=== PATIENT | female | born 1995 | race Caucasian/White ===

== ENCOUNTER 2024-12-20 17:41 | Emergency (ER) | payer BC, SELFPAY ==
[2024-12-20 17:52] VITALS: BP 139/87
[2024-12-20 18:27] LABS: Hematocrit 40.8 % (37.0-47.0); Hemoglobin 13.1 g/dL (12.0-16.0); Mean Corp Hgb Conc. 32.1 g/dL (33.0-37.0); Mean Corpuscular Volume 91.1 fL (81.0-99.0); Nucleated Red Blood Cells % 0 %; Platelet Count 205 10^3/uL (130-400); Red Cell Dist. Width 14.0 % (11.5-14.5)
[2024-12-20 18:34] LABS: HCG, Serum Qualitative Screen Negative
[2024-12-20 18:36] LABS: ALT (SGPT) 48 U/L (0-35); AST (SGOT) 41 U/L (14-36); Albumin 4.4 g/dl (3.5-5.0); Alkaline Phosphatase 39 U/L (38-126); Blood Urea Nitrogen 14 mg/dl (7-17); Calcium 9.2 mg/dl (8.4-10.2); Carbon Dioxide 27 mmol/L (22-30); Chloride 105 mmol/L (98-107); Glucose 98 mg/dl (70-99); Potassium 4.8 mmol/L (3.5-5.1); Sodium 135 mmol/L (135-145); Total Protein 6.9 g/dl (6.3-8.2); eGFR > 60.00
[2024-12-20 20:38] LABS: Beta HCG Quantitative 5.89 mIU/ml
[2024-12-20 20:47] VITALS: BMI 21.6
[2024-12-20 20:49] VITALS: BP 148/86
--- NOTE | 2024-12-20 21:00 | ED.GENMED ---
History of Present Illness
General
Chief Complaint: Vaginal Bleeding
Source: patient
Exam Limitations: none
Time Seen by Provider: 12/20/24 19:50
Nursing documentation reviewed up to this point in time: agreed with
History of Present Illness
History of Present Illness:
Patient to ED with complaint of vaginal bleeding. States earlier today while at the gym she developed some pelvic cramping followed by some light bleeding. She reports she is approximately 4.5 weeks . Reports taking a home test
which was positive. Now notes that the bleeding is becoming heavier. No blood clots. She denies fever or chills. Still with some mild cramping. Brought self to ED for eval
Past History
Past History
ED Past Medical History: Psychiatric (adhd)
ED Past Surgical History: None
Review of Systems
Review of Systems
Allergies reviewed?: Yes
All Other Systems: ROS reviewed and negative except as documented in HPI and ROS
Constitutional: Reports no symptoms
EENT: Reports no symptoms
Respiratory: Reports no symptoms
Cardiac: Reports no symptoms
ABD/GI: Reports no symptoms
: Reports bleeding (vaginal bleeding)
Musculoskeletal: Reports no symptoms
Skin: Reports no symptoms
Neurological: Reports no symptoms
Psychiatric: Reports no symptoms
Phy Exam
General Physical Exam
General Presentation: well appearing and no apparent distress
General age: appears stated age
General Skin: warm and dry
General Habitus: normal
General Mental: alert
Gastrointestinal Exam
Gastrointestinal Exam: normal bowel sounds, non tender, soft, no organomegaly, no pulsatile mass, non distended and no cva tenderness
Genitourinary Exam Female
Exam Female: no lesions, no mass and vaginal bleeding
Vaginal Exam: blood
Vaginal Bleeding: moderate (no clots)
Musculoskeletal Exam
Musculoskeletal Exam: full ROM and neuro vasc intact
Skin Exam
Skin Exam: normal color, warm/dry and no rash
Psychiatric Exam
Psychiatric Exam: normal mood/affect
Course
Orders/Labs/Results
Orders:
Orders
12/20/24 18:04
Test Result ONCE
12/20/24 18:15
Beta HCG Quantitative Urgent
Comment: ADD ON
CMP [Comprehensive Metabolic Panel] Urgent
Complete Blood Count/With Diff Urgent
, Serum Qualitative Screen [HCG, Serum Qualitative Screen] Urgent
12/20/24 19:44
Add On- LAB Urgent
Tests Added?: hcg quant
Abnormal Lab Results
12/20/24
18:15
MCHC 32.1 L g/dL
(33.0-37.0)
MPV 10.6 H fL
(7.4-10.4)
Lymphocytes % 19.2 L %
(20.5-51.1)
AST 41 H U/L
(14-36)
ALT 48 H U/L
(0-35)
12/20/24 18:15
12/20/24 18:15
Vital Signs
Initial and Last Documented VS:
Initial Vital Signs
Temp Pulse Resp BP Pulse Ox
98.1 F 99 18 139/87 100
12/20/24 17:52 12/20/24 17:52 12/20/24 17:52 12/20/24 17:52 12/20/24 17:52
Last Documented Vital Signs
Temp Pulse Resp BP Pulse Ox
98.1 F 99 18 148/86 100
12/20/24 17:52 12/20/24 17:52 12/20/24 17:52 12/20/24 20:49 12/20/24 20:49
*Pulse Oximetry
SaO2: 100
Oxygen Mode of Delivery: Room air
Patient hypoxic: no
*Critical Care Note
Total Time (30-74mins, 75-104mins- exclusive of procedures): Not Applicable
Update Note
Update Note:
Patient to the emergency department with report of vaginal bleeding. Bleeding started this morning. She states she took a home test last week and the results were positive. LMP 9/. Earlier today she developed some mild pelvic
cramping followed by some light bleeding bleeding has continued to increase throughout the day. Vaginal exam completed. Moderate amount of blood noted in vagina, no clots. labs reviewed. HCG qualitative was negative. HCG quantitative 5.8.
Discussed results with patient. Bleeding today consistent with menstruation. Will discharge home. Given number for [facility] follow-up as she has not established a provider in this area. She was given instructions on signs and symptoms to return to
the emergency department and she is agreeable to plan
ED Attending Note
-
Portions of this chart may have been created with voice recognition software.� Occasional wrong word or��sound alike� substitutions may have occurred due to the inherent limitations of voice recognition software.
Discharge Plan
Departure
Patient Disposition: Home (Routine Discharge)
Date of Disposition: 12/20/24
Time of Disposition: 20:48
Patient with high blood pressure during this ER visit?: No
Condition: Good
Covid-19: Not Applicable
Discharge Problem:
Vaginal bleeding
Instructions: General
Referrals:
Mundo Allen MD [Family Provider, Family Practice]
Sharmaine Regalado DO [Active, Gynecology] - Call in 1-3 days for appt
Activity Restrictions/Additional Instructions:
As we discussed your hCG level was 5.8 tonight and is considered neg for . It is likely that you are experiencing your normal period. Return to the emergency department for any changes in/worsening of your symptoms, especially increasing
pain, fever and chills.
Interventions
Interventions:
*Risk Screen - Suicide Last Done: 12/20/24 20:49
*General Assessment Last Done: 12/20/24 20:49
*Neglect/Abuse Screening Last Done: 12/20/24 20:49
*ED- Fall Risk Assessment Last Done: 12/20/24 20:49
*ED COVID-19 Vaccine History Last Done: 12/20/24 20:49
*ED Influenza Vaccine History Last Done: 12/20/24 20:49
ED-Female Genitourinary Assessment Last Done: 12/20/24 20:49
Discharge Date and Time
Print Language: ARMENIAN
== END 2024-12-20 21:09 | disposition home or self-care (01) ==
LOC: EMR 17:41
PROVIDERS: Emergency Medicine; EMERGENCY PHYSICIAN Emergency Medicine; FAMILY PHYSICIAN Family Medicine
DX: N93.9 Abnormal uterine and vaginal bleeding, unspecified (principal); R10.2 Pelvic and perineal pain
CPT/HCPCS: 99283; 80053; 84702; 84703; 85025